=== PATIENT | female | born 1945 | race Caucasian/White ===

== ENCOUNTER → 2021-03-09 | Outpatient (CLI) | payer MEDICARE, OTHER ==
[2021-03-09 15:24] LABS: Basophils % (A) 1 %; Eosinophils # (A) 0.3 k/uL (0-0.7); Eosinophils % (A) 6 %; HCT 38.6 % (34.0-46.0); HGB 13.1 gm/dL (11.4-16.0); Lymphocytes # (A) 1.6 k/uL (1.0-4.8); Lymphocytes % (A) 29 %; MCH 33.2 pg (25.0-35.0); MCHC 33.8 g/dL (31.0-37.0); MCV 98.2 fL (80.0-100.0); Mean Platelet Volume 9.6; Monocytes # (A) 0.4 k/uL (0-1.0); Monocytes % (A) 7 %; Neutrophils # (A) 3.1 k/uL (1.3-7.7); Neutrophils % (A) 56 %; Platelet Count 179 k/uL (150-450); RBC 3.93 m/uL (3.80-5.40); RDW 14.2 % (11.5-15.5); WBC 5.6 k/uL (3.8-10.6)
[2021-03-09 15:28] LABS: Prothrombin Time 10.4 sec (9.0-12.0)
[2021-03-09 15:33] LABS: Potassium 4.3 mmol/L (3.5-5.1)
== END | disposition home or self-care (01) ==
LOC: LABPAT 14:21
PROVIDERS: ATTEND Orthopaedic Surgery
DX: Z01.812 Encounter for preprocedural laboratory examination (principal); Z79.01 Long term (current) use of anticoagulants; Z22.322 Carrier or suspected carrier of Methicillin resistant Staphylococcus aureus
CPT/HCPCS: 36415; 80051; 85025; 85610; 87070

== ENCOUNTER 2021-03-23 08:25 | Observation (INO) | payer MEDICARE, OTHER ==
[2021-03-19 11:01] VITALS: BMI 36.6
--- NOTE | 2021-03-22 11:56 | HP ---
HISTORY AND PHYSICAL DATE OF SURGERY: 03/23/2021 Irene Rea is a 76-year-old patient seen with symptomatic right knee osteoarthritis. We discussed options for treatment. She elected to proceed with right total knee arthroplasty. Consent was obtained. Medical clearance by Isabel James NP. PAST MEDICAL HISTORY: Hypertension, hyperlipidemia, hypothyroidism. PAST SURGICAL HISTORY: Hip arthroplasty, adenoidectomy. DAILY MEDICATIONS: Atorvastatin, lisinopril, [facility] Thyroid, Ventolin inhaler. ALLERGIES: NONE. SOCIAL HISTORY: She denies tobacco use. PHYSICAL EVALUATION OF THE RIGHT KNEE: Range of motion is zero to 120. Tenderness along the medial and lateral joint lines. Crepitus along the medial and lateral patellofemoral compartments with range of motion. Pain with patellofemoral compression. Ligaments stable. Hip rotation without pain. Distal neurovascular exam intact. RADIOGRAPHS: Right knee radiographs revealed moderate medial and lateral compartment osteoarthritis and severe patellofemoral compartment osteoarthritis. IMPRESSION: 1. Right knee osteoarthritis. 2. Hypertension. 3. Hypothyroidism. 4. Asthma. PLAN: Right total knee arthroplasty. MMODL / IJN: [id number] /
[~2021-03-23 08:25] MED LIST: ACETAMINOPHEN TAB 500 MG TAB PO PRN; DEXAMETHASONE SOD PHOSPHATE 4 MG/ML 1 ML VIAL IV ONE; LIDOCAINE 1% (10MG/ML) FOR IV START INTRADERMA PRN; MELOXICAM 7.5 MG TAB PO PRN; MIDAZOLAM 2 MG/2 ML VIAL IV PRN; ONDANSETRON 4 MG/2 ML VIAL IVP ONE; TRANEXAMIC ACID 1,000 MG in SODIUM CHLORIDE 0.9% 100 ML IVPB PRN
[2021-03-23] MEDS: LACTATED RINGERS 1,000 ML IV SCH (09:28)
[2021-03-23] MEDS ORDERED: SODIUM CHLORIDE 0.9% 100 ML BAG ONE (10:39)
[2021-03-23] MEDS ORDERED: MIDAZOLAM 2 MG/2 ML VIAL ONE (10:39)
[2021-03-23] MEDS ORDERED: HYDROmorphone (PF) 1 MG/ML ONE (10:39)
[2021-03-23] MEDS ORDERED: PROPOFOL 10 MG/ML 20 ML VIAL IV ONE (10:39)
[2021-03-23] MEDS ORDERED: DEXAMETHASONE SOD PHOSPHATE 4 MG/ML 1 ML VIAL ONE (10:39)
[2021-03-23] MEDS ORDERED: TRANEXAMIC ACID 1,000 MG/10 ML VIAL ONE (10:39)
[2021-03-23] MEDS ORDERED: ROPIVACAINE 5 MG/ML 30 ML VIAL ONE (10:39)
[2021-03-23] MEDS ORDERED: fentaNYL (PF) 50 MCG/ML 2 ML AMP ONE (10:39)
[2021-03-23] MEDS ORDERED: KETAMINE 10 MG/ML 20 ML VIAL ONE (10:39)
[2021-03-23] MEDS ORDERED: ceFAZolin 1,000 MG in SODIUM CHLORIDE 0.9% 1,000 ML IRRIGATION ONE (11:19)
[2021-03-23] MEDS ORDERED: HYDROcodone/APAP 5-325MG 1 EACH TAB PO PRN (12:15)
[2021-03-23] MEDS ORDERED: HYDROmorphone 0.5 MG/0.5 ML SYRINGE IVP PRN (12:15)
[2021-03-23] MEDS ORDERED: NALOXONE 0.4 MG/ML 1 ML VIAL IV PRN (12:15)
[2021-03-23] MEDS ORDERED: ONDANSETRON 4 MG/2 ML VIAL IVP PRN (12:15)
[2021-03-23] MEDS ORDERED: HYDROmorphone 0.2 MG/1 ML SYRINGE IVP PRN (12:15)
--- NOTE | 2021-03-23 12:15 | P.OP ---
Date of Procedure: 03/23/21 Preoperative Diagnosis: Right knee osteoarthritis Postoperative Diagnosis: Right knee osteoarthritis Procedure(s) Performed: Right total knee arthroplasty Implants: 1. Depuy attune size 5 narrow right cruciate retaining cemented femur 2. Depuy attune size 4 fixed bearing cemented tibial baseplate 3. Depuy attune size 5 fixed bearing cruciate retaining 12 mm polyethylene tibial insert 4. Depuy attune 35 mm all polyethylene cemented patella Anesthesia: GETA, regional (Adductor canal catheter, Ipack block), spinal Surgeon: Walt James Lard Bleacher #1: Joseph Pollard Estimated Blood Loss (ml): 45 Pathology: other (Bone) Condition: stable Disposition: PACU Indications for Procedure: 76-year-old patient seen with symptomatic right knee osteoarthritis. After treatment options were discussed, she elected to proceed with total knee arthroplasty. Operative Findings: see description of procedure Description of Procedure: Patient was taken to the operative suite after having an adductor canal catheter placed by the department of anesthesia as well as and Ipack block for postoperative pain management. Patient underwent a spinal anesthetic by the department of anesthesia. Patient was given preoperative IV intake antibiotics and TXA. A well-padded tourniquet was placed about the right lower extremity. The lower extremity was then prepped and draped in the normal sterile orthopedic fashion. The extremity was elevated, a tourniquet was insufflated to 300. A standard anterior incision was made sharply through skin. The patient seemed to be feeling the incision. She then was converted to a general anesthetic by the department of anesthesia. The surgery resumed. Dissection was taken down through the subcutaneous soft tissues down to the extensor mechanism. A medial arthrotomy was performed, patella was everted and knee was flexed. There was advanced osteoarthritis noted. I introduced my distal intramedullary femoral drill. I then introduced the distal femoral cutting jig. Jimenez BABB secured the cutting jig with 2 pins. I held retractors in position while Jimenez BABB performed the distal femoral resection through the guide area we now removed her distal femoral cutting guide. We now placed our 4-in-1 femoral cutting block and positioned and it was secured with 2 pins by Jimenez BABB while I held the block in position. The distal femoral finishing was now completed. A proximal tibial cutting guide was positioned. I held the guide in the appropriate position with both hands well Jimenez BABB inserted stabilizing pins into the guide. Proximal tibial cut was made. We now placed a trial femoral component into position, along with an appropriate size tibial tray and insert. We now took the knee through range of motion and had full extension good flexion and good overall soft tissue balance noted. The patella was everted and stabilized with 2 towel clips held by Jimenez BABB while I performed a flush with patellar quad tendon utilizing a fresh sawblade. We templated the patella, appropriate drill holes were made. An appropriate trial patella was positioned, knee was taken through full range of motion with the patella tracking very nicely. The trial patella was removed. Drill holes were made through the femoral component. All trial components were removed after marking off the appropriate rotation of the tibia. Retractors were now positioned along the proximal tibia. An appropriate keel punch was made with the appropriate size tibial guide by myself on Jimenez BABB assisted by holding retractors. At this point appropriate size implants were chosen and opened. The joint was irrigated copiously with pulse lavage mechanical irrigation. The posterior capsule was infiltrated with local analgesic. The wound was irrigated with pulse lavage mechanical irrigation. We mixed antibiotic methylmethacrylate. We placed the knee into flexion. We placed multiple retractors assisted by Jimenez BABB to expose the proximal tibia. Once the methyl methacrylate was ready, the tibial component was cemented into place removing any excess methylmethacrylate form by both myself and Jimenez BABB. The femoral component was cemented into place removing the removing any excess methylmethacrylate performed by both myself and Jimenez BABB. We then inserted the appropriate size polyethylene tibial insert. We made sure that it was locked into position. We took the knee into full extension, and then back in a flexion making sure we had removed any excess methylmethacrylate. The pat ellar component was then cemented down and secured with clamp. Excess methylmethacrylate removed. We kept the knee in full extension, patellar clamp in position until methylmethacrylate had hardened. Once it had hardened the patellar clamp was removed. The knee was taken through full range of motion. The patella tracked nicely. There was good soft tissue balancing. The tourniquet was now released. Additional hemostasis was achieved via electrocautery. A second gram of TXA was given. The wound again was irrigated with pulse lavage mechanical irrigation. The superficial soft tissues were infiltrated local analgesic. The extensor mechanism was repaired with Ethibond. We checked the repair with range of motion and it was stable. The subcutaneous soft tissues were repaired with Vicryl in layers. The skin was approximated with pernio/Dermabond. Sterile dressings were applied followed by loose web roll and Gonzalo bandage. The patient was transferred to a bed, and taken to recove ry in stable and satisfactory condition. Jimenez BABB assisted with this complex procedure.
[2021-03-23] MEDS: HYDROmorphone 0.5 MG/0.5 ML SYRINGE IVP PRN ×2 (12:37→12:46)
[2021-03-23] MEDS ORDERED: ROPIVACAINE 0.2%-NS ON-Q PUMP 1,090 MG, EMPTY PAIN BALL 1 EACH MISCELLANE PRN (12:38)
[2021-03-23] MEDS: fentaNYL (PF) 50 MCG/ML 2 ML AMP IVP ONE ×3 (12:53→13:04)
[2021-03-23] MEDS ORDERED: diphenhydrAMINE 50 MG/ML 1 ML VIAL ONE (13:08)
--- NOTE | 2021-03-23 13:16 | XR ---
EXAMINATION TYPE: XR knee limited RT DATE OF EXAM: 03/23/2021 CLINICAL HISTORY: Postoperative evaluation Two views of the right knee are submitted. Identified are changes of total knee arthroplasty with femoral and tibial components appearing well seated. Postsurgical soft tissue changes are noted. Alignment is anatomic.
--- NOTE | 2021-03-23 14:33 | P.ANPRN ---
Procedure Note - Anesthesia - Nerve Block Performed Right Adductor Canal Infusion Time Out Performed: Yes Date of Procedure: 03/23/21 Procedure Start Time: 09:52 Procedure Stop Time: 10:04 Location of Patient: PreOp Indication: Acute Post-Operative Pain, Requested by Surgeon Sedation Type: Sedate with meaningful contact maintained Preparation: Sterile Prep, Sterile Dressing Position: Supine Catheter: Indwelling Needle Types: Pajunk Needle Gauge: 21 Ultrasound used to visualize needle placement: Yes Ultrasound used to observe medication spread: Yes Blood Aspirated: No Pain Paresthesia on Injection Noted: No Resistance on Injection: Normal Image Stored and Saved: Yes Events: Uneventful and Well Tolerated (ropi .5% 20cc)
--- NOTE | 2021-03-23 14:34 | P.ANPRN ---
Procedure Note - Anesthesia - Nerve Block Performed Right Tyrack Single Time Out Performed: Yes Date of Procedure: 03/23/21 Procedure Start Time: 10:05 Procedure Stop Time: 10:10 Location of Patient: PreOp Indication: Acute Post-Operative Pain, Requested by Surgeon Sedation Type: Sedate with meaningful contact maintained Preparation: Sterile Prep Position: Supine Needle Types: [place] Needle Gauge: 21 Ultrasound used to visualize needle placement: Yes Ultrasound used to observe medication spread: Yes Blood Aspirated: No Pain Paresthesia on Injection Noted: No Resistance on Injection: Normal Image Stored and Saved: Yes Events: Uneventful and Well Tolerated (ropi .5% 25cc plus dexamethasone 4mg)
[2021-03-23] MEDS ORDERED: HYDROCORTISONE 1% CREAM 30 GM TUBE TOPICAL PRN (17:21)
--- NOTE | 2021-03-23 17:26 | P.CONS ---
History of Present Illness - Reason for Consult Consult date: 03/23/21 HTN Requesting physician: Walt James - Chief Complaint knee pain - History of Present Illness Patient is a 76-year-old female with a history of hypertension, dyslipidemia, and asthma who presented for elective right total knee arthroplast Patient seen and examined at bedside. She complains of wrist irritation and itching. Pain is well managed in her knee currently. She denies any lightheadedness, dizziness, chest pain, shortness breath, nausea or vomiting. She denies any recent illnesses. She tried conservative management of her knee pain and was requiring a cane prior to admission. Pertinent positives and negatives as discussed in HPI, a complete review of systems was performed and all other systems are negative. General: non toxic, no distress, appears at stated age Derm: Dermatitis with excoriation bilateral wrists, warm, dry, dressing in place over right knee Head: atraumatic, normocephalic, symmetric Eyes: EOMI, no lid lag, anicteric sclera, pupils equal round reactive to light ENT: Nose and ears atraumatic, no thrush, no pharyngeal erythema Neck: No thyromegaly, no cervical lymphadenopathy, trachea midline, supple Mouth: no lip lesion, mucus membranes moist Cardiovascular: S1S2 reg, no murmur, positive posterior tibial pulse bilateral, no edema, capillary refill less than 2 seconds Lungs: clear to ascultation bilateral, no ronchi, no rales, no wheeze, no accessory muscle use Abdominal: soft, nontender to palpation, no guarding, no appreciable organomegaly, normal bowel sounds Ext: no gross muscle atrophy, muscle strength muscle strength 5 out of 5 in all 4 extremities, no contractures Neuro: CN II-XI grossly intact, light touch intact all 4 extremities, finger to nose within normal limits, Psych: Alert, oriented, appropriate affect Patient is a 76-year-old female status post right total knee arthroplasty - Plans are for home with home health, patient will need a walker prescription. Hypertension - elevated due to surgery - follow BP - resume lisinopril Contact dermatitis bilateral wrist - take off patient bands and attach to bed - hydocortisone cream Dyslipidemia - no on statin - has planne outpatient follow-up Asthma - prn bronchodilators Chronic: Fibromyalgia Osteoarthritis Varicose veins Eczema Past Medical History Past Medical History: Asthma, Fibromyalgia, Hyperlipidemia, Hypertension, Osteoarthritis (OA), Pneumonia, Skin Disorder Additional Past Medical History / Comment(s): varicose veins, hiatal hernia, constipation, eczema, History of Any Multi-Drug Resistant Organisms: None Reported Past Surgical History: Adenoidectomy, Joint Replacement, Tonsillectomy, Tubal Ligation Additional Past Surgical History / Comment(s): rt hip replacement, [place] cataracts, laser surgery for glaucoma Past Anesthesia/Blood Transfusion Reactions: Motion Sickness, Postoperative Nausea & Vomiting (PONV) Past Psychological History: No Psychological Hx Reported Smoking Status: Former smoker Past Alcohol Use History: Occasional Additional Past Alcohol Use History / Comment(s): quit smoking age 26, smoked for 5 yrs Past Drug Use History: None Reported - Past Family History Sister(s) Family Medical History: Cancer Medications and Allergies Home Medications Medication Instructions Recorded Confirmed Type Ergocalciferol [Vitamin D2 (1250 1,250 mcg PO FR 03/19/21 03/23/21 History Mcg = 79784 Iu)] Multivitamins, Thera [Multivitamin 1 tab PO DAILY 03/19/21 03/19/21 History (formulary)] Thyroid,Pork [[place] Thyroid] 60 mg PO DAILY 03/19/21 03/19/21 History lisinopriL 10 mg PO QAM 03/19/21 03/19/21 History Allergies Allergy/AdvReac Type Severity Reaction Status Date / Time adhesive tape Allergy Rash/Hives Verified 03/23/21 08:54 ezetimibe Allergy Rash/Hives Verified 03/23/21 08:54 latex Allergy Unknown Verified 03/23/21 08:54 Physical Exam Osteopathic Statement: *. No significant issues noted on an osteopathic structural exam other than those noted in the History and Physical/Consult. Vitals: Vital Signs Temp Pulse Pulse Resp BP BP Pulse Ox 03/23/21 16:18 97.4 F L 70 18 164/69 94 L 03/23/21 15:00 59 L 16 184/74 98 03/23/21 14:30 59 L 16 155/73 99 03/23/21 14:15 60 16 169/71 99 03/23/21 14:00 60 16 155/64 98 03/23/21 13:45 62 16 153/72 97 03/23/21 13:30 59 L 16 161/72 96 03/23/21 13:15 61 16 155/70 94 L 03/23/21 13:00 62 16 162/74 94 L 03/23/21 12:45 61 16 173/74 97 03/23/21 12:33 97.5 F L 62 12 145/67 96 03/23/21 10:13 67 16 137/62 100 03/23/21 09:12 98.1 F 60 18 126/60 98 Intake and Output 03/23/21 03/23/21 03/23/21 06:59 14:59 22:59 Intake Total 1051 100 Output Total 45 Balance 1006 100 Intake: IV 1051 100 Output: Estimated Blood Loss 45 Other: Weight 96.4 kg 96.4 kg
[2021-03-23] MEDS: SODIUM CHLORIDE 0.9% 1,000 ML IV SCH (17:33)
[2021-03-23] MEDS: HYDROcodone/APAP 7.5-325MG 1 EACH TAB PO PRN (18:54)
[2021-03-23] MEDS: SENNOSIDES-DOCUSATE SODIUM 1 EACH TAB PO SCH (20:13)
[2021-03-24] MEDS: ENOXAPARIN 30 MG/0.3 ML SYRINGE SQ SCH ×2 (00:52→12:08)
[2021-03-24] MEDS: HYDROcodone/APAP 7.5-325MG 1 EACH TAB PO PRN ×3 (01:15→20:46)
[2021-03-24 05:04] LABS: Basophils % (A) 0 %; Eosinophils % (A) 0 %; HCT 34.4 % (34.0-46.0); HGB 11.4 gm/dL (11.4-16.0); Lymphocytes # (A) 0.9 k/uL (1.0-4.8); Lymphocytes % (A) 11 %; MCH 33.4 pg (25.0-35.0); MCHC 33.1 g/dL (31.0-37.0); MCV 100.9 fL (80.0-100.0); Macrocytosis Slight; Mean Platelet Volume 9.1; Monocytes # (A) 0.5 k/uL (0-1.0); Monocytes % (A) 6 %; Neutrophils % (A) 83 %; Platelet Count 162 k/uL (150-450); RBC 3.41 m/uL (3.80-5.40); RDW 13.8 % (11.5-15.5); WBC 8.5 k/uL (3.8-10.6)
--- NOTE | 2021-03-24 07:26 | P.PN ---
Progress Note - Text Progress Note Date: 03/24/21 Postoperative day # 1 status post total knee arthroplasty, and adductor canal catheter placed for postoperative analgesia, currently at ropivacaine 0.2% 8 mL per hour and continuous infusion, visual analogue scale is 4/10, patient using oral pain medication for breakthrough pain. And IV Dilaudid Assessment and plan= Acute postoperative pain, adductor canal catheter for pain control, pain is well controlled we'll continue the same management.
[2021-03-24] MEDS: lisinopriL 10 MG TAB PO SCH (09:00)
[2021-03-24] MEDS: THYROID, PORK 30 MG TAB PO SCH (09:00)
[2021-03-24] MEDS: HYDROmorphone 0.5 MG/0.5 ML SYRINGE IVP PRN ×2 (09:01→12:08)
--- NOTE | 2021-03-24 09:31 | P.PN ---
Subjective Progress Note Date: 03/24/21 Feels okay still has right knee pain. No chest pain no abdominal pain no nausea no vomiting no dizziness. Objective - Vital Signs Vital signs: Vital Signs Temp 97.8 F 03/24/21 03:42 Pulse 67 03/24/21 03:42 Resp 18 03/24/21 03:42 BP 135/69 03/24/21 03:42 Pulse Ox 95 03/24/21 03:42 Intake & Output 03/23/21 03/24/21 03/24/21 18:59 06:59 18:59 Intake Total 1151 Output Total 195 Balance 956 Weight 96.4 kg Intake: IV 1151 Output: Urine 150 Estimated Blood Loss 45 Other: Voiding Method Toilet Toilet # Voids 2 - Exam General: non toxic, no distress, appears at stated age Derm: Dermatitis with excoriation bilateral wrists, warm, dry, dressing in place over right knee Head: atraumatic, normocephalic, symmetric Eyes: EOMI, no lid lag, anicteric sclera ENT: Nose and ears atraumatic Neck: No thyromegaly Mouth: no lip lesion, mucus membranes moist Cardiovascular: S1S2 reg, no murmur, positive posterior tibial pulse bilateral, no edema, capillary refill less than 2 seconds Lungs: clear to ascultation bilateral, no ronchi, no rales, no wheeze, no accessory muscle use Abdominal: soft, nontender to palpation, no guarding, no appreciable organomegaly, normal bowel sounds Ext: no gross muscle atrophy, muscle strength muscle strength 5 out of 5 in all 4 extremities, no contractures Neuro: CN II-XI grossly intact, light touch intact all 4 extremities, finger to nose within normal limits, Psych: Alert, oriented, appropriate affect - Labs CBC & Chem 7: 03/24/21 04:44 Labs: Abnormal Lab Results - Last 24 Hours (Table) 03/24/21 Range/Units 04:44 RBC 3.41 L (3.80-5.40) m/uL MCV 100.9 H (80.0-100.0) fL Lymphocytes # 0.9 L (1.0-4.8) k/uL Assessment and Plan Assessment: Patient is a 76-year-old female status post right total knee arthroplasty - Plans are for home with home health, patient will need a walker prescription. Hypertension -Continue lisinopril Contact dermatitis bilateral wrist - hydocortisone cream Dyslipidemia - not on statin outpatient follow-up Asthma - prn bronchodilators Chronic: Fibromyalgia Osteoarthritis Varicose veins Eczema Disposition: Pending clinical progression. Medically okay for discharge
--- NOTE | 2021-03-24 12:57 | P.PN ---
Subjective Progress Note Date: 03/24/21 Principal diagnosis: Right knee osteoarthritis Patient was seen at bedside this morning lying semirecumbent bed. Patient states she has been significant amount of pain since surgery yesterday. She says most the pain is located at the back of her knee and then her calf. Patient rates this pain as 10/10. She says she try to get up with physical therapy today, but she was in too much pain to walk around. Patient states she recently in the past hour was given a dose of Dilaudid to help control with her pain. She says the pain eased a bit after dilaudid given. Patient says she has not had bowel movement since surgery, however, patient has been passing gas. She says she has been using incentive spirometer. Patient says she has 10 steps to get up into her house and lives alone. Patient has not felt comfortable about going home. Patient denies chest pain, fever, shortness of breath, nausea, vomiting, change in vision, loss of bowel/bladder control Objective - Vital Signs Vital signs: Vital Signs Temp 98.1 F 03/24/21 08:00 Pulse 71 03/24/21 09:04 Resp 18 03/24/21 09:04 BP 167/67 03/24/21 08:00 Pulse Ox 97 03/24/21 08:00 Intake & Output 03/23/21 03/24/21 03/24/21 18:59 06:59 18:59 Intake Total 1151 Output Total 195 Balance 956 Weight 96.4 kg Intake: IV 1151 Output: Urine 150 Estimated Blood Loss 45 Other: Voiding Method Toilet Toilet Toilet # Voids 2 - Exam Right knee: Incision is clean, dry, and intact. The emily are in good condition. There is minimal soft tissue swelling and ecchymosis surrounding the medial and lateral aspects of the incision. moderate tenderness to palpation of the calf. The calf is not warm to touch. There is no erythema. Plantar flexion, dorsiflexion, EHL, FHL are intact. Sensory exam to light touch throughout the extremity is intact, dorsal pedis pulses 2+. - Labs CBC & Chem 7: 03/24/21 04:44 Labs: Abnormal Lab Results - Last 24 Hours (Table) 03/24/21 Range/Units 04:44 RBC 3.41 L (3.80-5.40) m/uL MCV 100.9 H (80.0-100.0) fL Lymphocytes # 0.9 L (1.0-4.8) k/uL Assessment and Plan Assessment: Right knee osteoarthritis Postoperative day #1 status post right total knee arthroplasty Plan: 1. Right knee osteoarthritis - right total knee arthroplasty performed yesterday, 03/23/2021. Patient seen at bedside this morning in moderate amount of pain. Plan to add tramadol 50 mg 3 times a day between doses of [place] to help control pain. Plan to discharge to rehab tomorrow 2. Appreciate medical management 3. Pain management - continue Spring. Will add tramadol 50 mg to take between Spring doses. Dilaudid only if needed 4. DVT prophylaxis - Lovenox 5. GI prophylaxis - senna 6. Encourage incentive spirometer use 7. PT/OT - weightbearing as side with walker for assistance 8. Discharge planning - planning discharge to rehab tomorrow vs Time with Patient: Less than 30
[2021-03-24] MEDS: LACTATED RINGERS 1,000 ML IV SCH (14:41)
[2021-03-24] MEDS: traMADol 50 MG TAB PO SCH ×2 (15:57→22:07)
[2021-03-24] MEDS: SENNOSIDES-DOCUSATE SODIUM 1 EACH TAB PO SCH (20:47)
[2021-03-25] MEDS: SODIUM CHLORIDE 0.9% 1,000 ML IV SCH ×2 (00:21→06:10)
[2021-03-25] MEDS: ENOXAPARIN 30 MG/0.3 ML SYRINGE SQ SCH ×2 (00:30→11:41)
[2021-03-25] MEDS: HYDROcodone/APAP 7.5-325MG 1 EACH TAB PO PRN ×2 (02:01→08:49)
[2021-03-25 07:34] VITALS: BP 158/72; PULSE 74; RESP 18; TEMP 97.3
[2021-03-25] MEDS: LACTATED RINGERS 1,000 ML IV SCH (07:35)
[2021-03-25] MEDS: THYROID, PORK 30 MG TAB PO SCH (07:41)
[2021-03-25] MEDS: lisinopriL 10 MG TAB PO SCH (07:41)
[2021-03-25] MEDS: traMADol 50 MG TAB PO SCH (07:41)
--- NOTE | 2021-03-25 09:18 | P.PN ---
Subjective Progress Note Date: 03/25/21 Principal diagnosis: Status post right total knee arthroplasty Patient evaluated at bedside, she is resting in her hospital bed. She does note discomfort in the right knee. She states that the medication is helping at this time. She has worked with physical therapy, she is very concerned with going home due to the amount of stair she has at her apartment. We have been in d iscussion with case management/child protective services social worker regarding rehab placement. Currently denies any headaches, lightheadedness, chest pain or shortness of breath. Objective - Vital Signs Vital signs: Vital Signs Temp 97.3 F L 03/25/21 07:34 Pulse 74 03/25/21 07:34 Resp 18 03/25/21 07:34 BP 158/72 03/25/21 07:34 Pulse Ox 95 03/25/21 07:34 Intake & Output 03/24/21 03/25/21 03/25/21 18:59 06:59 18:59 Intake Total 1000 Balance 1000 Intake: Oral 1000 Other: Voiding Method Toilet # Voids 2 2 - Exam Right lower extremity: Incision is clean, dry, and intact. The emily are in good condition. There is minimal soft tissue swelling and ecchymosis surrounding the medial and lateral aspects of the incision. Calf is soft, no tenderness with palpation. Plantar flexion, dorsiflexion, EHL, FHL are intact. Sensory exam to light touch throughout the extremity is intact, dorsal pedis pulses 2+. - Labs CBC & Chem 7: 03/24/21 04:44 Assessment and Plan Assessment: Postoperative day #2 status post right total knee arthroplasty Plan: Pain control, will continue use of [place] 7.5 mg/325 mg and Tramadol 50 mg for discharge DVT prophylaxis, continue Lovenox 30 mg subcu daily, plan for transition aspirin 81 mg twice a day and discharged home Wound care instructions were discussed with patient, this including icing and elevating along the showering techniques Medical recommendations Encourage incentive spirometer Discharge planning: planning for discharge to rehab today Time with Patient: Less than 30
--- NOTE | 2021-03-25 10:12 | P.PN ---
Subjective Progress Note Date: 03/25/21 Feels overall better today. Still complains of right knee pain. No chest pain, no nausea or vomiting. Objective - Vital Signs Vital signs: Vital Signs Temp 97.3 F L 03/25/21 07:34 Pulse 74 03/25/21 07:34 Resp 18 03/25/21 08:00 BP 158/72 03/25/21 07:34 Pulse Ox 95 03/25/21 07:34 Intake & Output 03/24/21 03/25/21 03/25/21 18:59 06:59 18:59 Intake Total 1000 Balance 1000 Intake: Oral 1000 Other: Voiding Method Toilet Toilet # Voids 2 2 - Exam General: non toxic, no distress, appears at stated age Derm: Dermatitis with excoriation bilateral wrists, warm, dry, dressing in place over right knee Head: atraumatic, normocephalic, symmetric Eyes: EOMI, no lid lag, anicteric sclera ENT: Nose and ears atraumatic Neck: No thyromegaly Mouth: no lip lesion, mucus membranes moist Cardiovascular: S1S2 reg, no murmur, positive posterior tibial pulse bilateral, no edema, capillary refill less than 2 seconds Lungs: clear to ascultation bilateral, no ronchi, no rales, no wheeze, no accessory muscle use Abdominal: soft, nontender to palpation, no guarding, no appreciable organomegaly, normal bowel sounds Ext: no gross muscle atrophy, muscle strength muscle strength 5 out of 5 in all 4 extremities, no contractures Neuro: CN II-XI grossly intact, light touch intact all 4 extremities Psych: Alert, oriented, appropriate affect - Labs CBC & Chem 7: 03/24/21 04:44 Assessment and Plan Assessment: Patient is a 76-year-old female status post right total knee arthroplasty - Possibly needing rehab. Hypertension -Continue lisinopril Contact dermatitis bilateral wrist - hydocortisone cream Dyslipidemia - not on statin outpatient follow-up Asthma - prn bronchodilators Chronic: Fibromyalgia Osteoarthritis Varicose veins Eczema Disposition: Pending clinical progression. Medically okay for discharge, likely needs rehab.
--- NOTE | 2021-03-25 12:02 | P.DS ---
Providers Date of admission: 03/24/21 15:13 Expected date of discharge: 03/25/21 Attending physician: Walt James Consults: 03/23/21 12:15 Consult Physician Routine Consulting Provider: Sloane Mg Consult Reason/Comments: Medical management Do you want consulting provider notified?: Yes Primary care physician: Isabel [facility] Course: Date of admission: 03/23/2021 Date of discharge: 03/25/2021 Admission diagnosis: Status post right total knee arthroplasty Discharge diagnosis: Same Attending physician: Dr. James Surgery: Right total knee arthroplasty Brief history: Patient is a 76-year-old female with a history of progressive primary right knee osteoarthritis. At this point patient has failed conservative treatment measures and has opted to proceed with a elective right total knee arthroplasty. Hospital course: Details of patient's surgery can be found in operative report. Patient tolerated the procedure well and was subsequently transported to orthopedic floor. Patient's orthopeidc and medical care was provided daily. Patient had daily laboratory tests performed for evaluation of overall blood counts. Patient had daily physical therapy to include strengthening range of motion as well as education with walker ambulation. Patient was treated with Lovenox for their postoperative DVT prophylaxis during their inpatient stay. Patient was noted to have a relatively uneventful postoperative course. Patient reported satisfactory pain control with oral pain medications by postoperative day 0. Patient showed satisfactory progress with physical therapy. Patient moved steadily through the program and had no difficulty meeting the goals by postoperative day 2. Given patient's otherwise satisfactory course and having met physical therapy goals, plan is to discharge patient rehab on postoperative day 2. Discharge condition/disposition: Patient will be discharged to rehab in stable condition. Discharge medications: Instructions are given on resumption of patient's normal daily medications per primary care recommendation, in addition patient will be prescribed [place] 7.5 mg/325 mg, tramadol 50 mg, Heparin 5000 units, Colace 100 mg. Discharge instructions: 1. Wound care and infection precautions, keep incision dry and covered while showering, no lotions, creams, moisturizers. No soaking, tubs, pools, hottubs. Do not scrub over the incision. 2. Weight-bear as tolerated with walker / cane until follow-up. 3. Ice and elevate when necessary. Do not exceed 20 minutes per hour with ice pack. 4. Utilize compression sleeve until seen at first follow up appointment. 5. Visiting nursing care. 6. Home physical therapy. 7. Pain meds and anticoagulants per prescription. 8. Pain medication has potential to cause constipation. Increase oral fluid and fiber intake. Contact primary care provider if you have not had a bowel movement within 48 hours after discharge 9. No anti-inflammatory medication until discussed at first post operative visit, this including Motrin, Aleve, Mobic, Diclofenac. 10. Follow up in office at 2 weeks postop with Jimenez Pollard PA-C/Meir Baca 11. Follow up with your primary care doctor 7-10 days after discharge. 12. Contact [facility] with any questions, . Procedures: Right total knee arthroplasty Patient Condition at Discharge: Good Plan - Discharge Summary Discharge Rx Participant: Yes New Discharge Prescriptions: New Docusate [Colace] 100 mg PO DAILY #30 cap HYDROcodone/APAP 7.5-325MG [[place] 7.5] 1 each PO Q6HR PRN #28 tab PRN Reason: Pain traMADol HCl [Ultram] 50 mg PO Q6H PRN #28 tab PRN Reason: Pain Heparin Sodium,Porcine [Heparin Sodium] 5,000 unit SQ Q12HR #30 each No Action Thyroid,Pork [[place] Thyroid] 60 mg PO DAILY Ergocalciferol [Vitamin D2 (1250 Mcg = 18481 Iu)] 1,250 mcg PO FR lisinopriL 10 mg PO QAM Multivitamins, Thera [Multivitamin (formulary)] 1 tab PO DAILY Discharge Medication List Ergocalciferol [Vitamin D2 (1250 Mcg = 32110 Iu)] 1,250 mcg PO FR 03/19/21 [History] Multivitamins, Thera [Multivitamin (formulary)] 1 tab PO DAILY 03/19/21 [History] Thyroid,Pork [[place] Thyroid] 60 mg PO DAILY 03/19/21 [History] lisinopriL 10 mg PO QAM 03/19/21 [History] Docusate [Colace] 100 mg PO DAILY #30 cap 03/25/21 [Rx] HYDROcodone/APAP 7.5-325MG [[place] 7.5] 1 each PO Q6HR PRN #28 tab 03/25/21 [Rx] Heparin Sodium,Porcine [Heparin Sodium] 5,000 unit SQ Q12HR #30 each 03/25/21 [Rx] traMADol HCl [Ultram] 50 mg PO Q6H PRN #28 tab 03/25/21 [Rx] Follow up Appointment(s)/Referral(s): Walt James DO [Doctor of Osteopathic Medicine] - [facility]10[facility] - As Needed [facility], [NON-STAFF] - 1-2 Days Activity/Diet/Wound Care/Special Instructions: Orthopedic Discharge Instructions: 1. Wound care and infection precautions, keep incision dry and covered while showering, no lotions, creams, moisturizers. No soaking, pools, hot tubs. Do not scrub over incision. 2. Weight-bear as tolerated with walker / cane until follow-up. 3. Ice and elevate when necessary. Do not exceed 20 minutes per hour with ice pack. 4. Utilize compression sleeve until seen at first follow up appointment. 5. Pain meds and anticoagulants per prescription. 6. Pain medication has potential to cause constipation. Increase oral fluid and fiber intake. Contact primary care provider if you have not had a bowel movement within 48 hours after discharge. 7. No anti-inflammatory medication until discussed at first post operative visit, this including Motrin, Aleve, Mobic, Diclofenac. 8. Follow up in office at 2 weeks postop with Jimenez Pollard PA-C/Meir Alcazar PA-C 9. Follow up with your primary care doctor 7-10 days after discharge. 10. Contact [facility] with any questions, . Wound care instructions: 1. Okay to remove emily on 04/06/2021 2. Keep incision covered and dry while showering until evaluated at first post Discharge Disposition: TRANSFER TO SNF/ECF
== END 2021-03-25 13:59 ==
LOC: OR 08:25 → 1SOBS 12:06 → OR 03-24 14:31 → 1SOBS 03-24 15:13
PROVIDERS: ADMIT Orthopaedic Surgery; ATTEND Orthopaedic Surgery
DX: M17.11 Unilateral primary osteoarthritis, right knee (principal); G89.18 Other acute postprocedural pain; I10 Essential (primary) hypertension; E78.5 Hyperlipidemia, unspecified; E03.9 Hypothyroidism, unspecified; J45.909 Unspecified asthma, uncomplicated; M79.7 Fibromyalgia; I83.90 Asymptomatic varicose veins of unspecified lower extremity; K44.9 Diaphragmatic hernia without obstruction or gangrene; L30.9 Dermatitis, unspecified; K59.00 Constipation, unspecified; R73.03 Prediabetes; Z20.822 Contact with and (suspected) exposure to COVID-19; Z87.01 Personal history of pneumonia (recurrent); Z87.891 Personal history of nicotine dependence; Z96.641 Presence of right artificial hip joint; Z79.899 Other long term (current) drug therapy; Z79.890 Hormone replacement therapy; Z98.890 Other specified postprocedural states; Z91.040 Latex allergy status; Z88.8 Allergy status to other drugs, medicaments and biological substances; Z91.048 Other nonmedicinal substance allergy status; Z80.9 Family history of malignant neoplasm, unspecified
CPT/HCPCS: 97116; 97161; 97530; 97166; 64999; 64448; 76942; 85025; 88300; 87635; 73560; 27447; G0378 ×2; C1776; C1713 ×2; J2250; J1200; J1100; J0690 ×3; J2405; J3010; J1650 ×2; J1170 ×3; J2795 ×2; J2704

== ENCOUNTER → 2022-02-26 | Outpatient (CLI) | payer MEDICARE, OTHER ==
[2022-02-26 22:54] LABS: Basophils # (A) 0.01 X 10*3/uL (0.00-0.10); Basophils % (A) 0.2 %; Eosinophils # (A) 0 X 10*3/uL (0.04-0.35); Eosinophils % (A) 0 %; HCT 42.3 % (37.2-46.3); HGB 13.9 g/dL (12.0-15.0); Immature Grans, Automated 0.6 %; Lymphocytes # (A) 0.86 X 10*3/uL (0.90-5.00); Lymphocytes % (A) 17.7 %; MCHC 32.9 g/dL (32.0-37.0); MCV 97.5 fL (80.0-97.0); Mean Platelet Volume 12.1 fL (9.5-12.2); Monocytes % (A) 2.1 %; NRBC Per 100 WBC 0 /100 WBCS (0.0-0.0); Neutrophils # (A) 3.85 X 10*3/uL (1.80-7.70); Neutrophils % (A) 79.4 %; Platelet Count 223 X 10*3/uL (140-440); RBC 4.34 X 10*6/uL (4.10-5.20); RDW 14.4 % (11.5-14.5); WBC 4.85 X 10*3/uL (4.50-10.00)
[2022-02-27 00:06] LABS: Thyroid Peroxidase Antibodies 14.8 U/mL (0.0-33.0)
[2022-02-27 00:13] LABS: C Reactive Protein <0.30 mg/dL (0.00-0.80)
== END | disposition home or self-care (01) ==
LOC: LABWHC1 15:49
PROVIDERS: ATTEND Allergy & Immunology
DX: E03.9 Hypothyroidism, unspecified (principal); L50.8 Other urticaria
CPT/HCPCS: 36415; 84439; 84443; 84481; 85025; 86140; 86376; 86800

== ENCOUNTER → 2022-03-05 | Outpatient (CLI) | payer MEDICARE, OTHER ==
--- NOTE | 2022-03-05 08:04 | P.GSHP ---
History of Present Illness H&P Date: 03/05/22 Chief Complaint: Abnormal mammogram Irene is a 77 year old white female seen in consultation for Isabel riley NP regarding a mammographic abnormality in the left breast. The [place] underwent [place] [id number]. This revealed amorphous calcifica tions in the left breast at middle depth 7 cm from the nipple. No lesions of concern were seen in the right breast. Additional views of the left breast were obtained on. Stereotactic core biopsy was recommended. The calcifications were in the lower outer quadrant of the breast. The mammogram was reviewed with Dr. Perez from radiology. The patient does not note any lumps masses or nodules of concern in either breast. She has had 2 biopsies of the right breast in the past both were done in the operating room and were benign. She has not had any recent trauma or infection of the breast. Caffeine: 1-2 cups of coffee/day nicotine: former smoker in chocolate: occasional BCP: stopped in her 30's Family History: sister: breast cancer after 10 years; dx. in 40's sister: breast cancer, dx. late 50's mother: esophogeal Hormonal History: menarche: 9 M4 age at first :18, breast fed: no meopause: 40 hormones: none Surgical history: Right knee replacement Right hip replacement Right breast biopsy 2 Tubal ligation Medical History: allergies HTN fibromyalgia high cholesterol hypothyroid Social HIstory: nicotine: former smoker stopped in alcohol: wine weekly drugs: none - Constitutional Constitutional: Denies chills, Denies fever - EENT Eyes: denies blurred vision, denies pain Ears: bilateral: decreased hearing, deny: tinnitus Ears, nose, mouth and throat: Denies headache, Denies sore throat - Breasts Breasts: bilateral: as per HPI - Cardiovascular Cardiovascular: Denies chest pain, Denies shortness of breath - Respiratory Comment: asthma - Gastrointestinal Gastrointestinal: Denies abdominal pain, Denies diarrhea, Denies nausea, Denies vomiting - Genitourinary (Female) Genitourinary: Denies dysuria, Denies hematuria - Menstruation Menstruation: Reports postmenopausal - Musculoskeletal Musculoskeletal: Reports myalgias - Integumentary Comment: 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 Integumentary: Reports pruritus, Reports rash - Neurological Neurological: Denies numbness, Denies weakness - Psychiatric Psychiatric: Denies anxiety, Denies depression - Endocrine Endocrine: Reports fatigue, Denies weight change - Hematologic/Lymphatic Comment: none - Allergic/Immunologic Allergic/Immunologic: Reports as per HPI Past Medical History Past Medical History: Asthma, Fibromyalgia, Hyperlipidemia, Hypertension, Osteoarthritis (OA), Pneumonia, Skin Disorder Additional Past Medical History / Comment(s): varicose veins, hiatal hernia, constipation, eczema History of Any Multi-Drug Resistant Organisms: None Reported Past Surgical History: Adenoidectomy, Joint Replacement, Tonsillectomy, Tubal Ligation Additional Past Surgical History / Comment(s): rt hip replacement, [place] cataracts, laser surgery for glaucoma. Right knee replacement Past Anesthesia/Blood Transfusion Reactions: Motion Sickness, Postoperative Nausea & Vomiting (PONV) Past Psychological History: No Psychological Hx Reported Smoking Status: Former smoker Past Alcohol Use History: Occasional Additional Past Alcohol Use History / Comment(s): quit smoking age 26, smoked for 5 yrs Past Drug Use History: None Reported - Past Family History Sister(s) Family Medical History: Cancer Medications and Allergies Home Medications Medication Instructions Recorded Confirmed Type Thyroid,Pork [[place] Thyroid] 60 mg PO DAILY 03/19/21 03/05/22 History Olmesartan Medoxomil 20 mg PO DAILY 02/18/22 03/05/22 History Rosuvastatin [Crestor] 10 mg PO DAILY 02/18/22 03/05/22 History Allergies Allergy/AdvReac Type Severity Reaction Status Date / Time adhesive tape Allergy Rash/Hives Verified 03/05/22 07:16 ezetimibe Allergy Rash/Hives Verified 03/05/22 07:16 latex Allergy Unknown Verified 03/05/22 07:16 Surgical - Exam - General no distress - Eyes normal ocular movement - Neck trachea midline - Respiratory normal respiratory effort, clear to auscultation - Cardiovascular Rhythm: regular Heart Sounds: normal: S1, S2 - Abdomen Abdomen: soft, non tender, no guarding, no rigid, no rebound - Integumentary rash over back and chest - Musculoskeletal uses a cane, arthritis - Psychiatric oriented to time, oriented to person, oriented to place, speech is normal, m kirill intact Breast Exam: BRA: 44D inspection: bilateral grade 3 ptosis; right breast slightly larger than left breast palpation: right breast: multi-positional exam fibrocystic changes no dominant masses or nodules of concern Right axilla: No adenopathy of concern Left breast: Multi-positional exam fibrocystic changes no dominant masses or nodules of concern Left axilla: No adenopathy of concern Results Mammogram reviewed with Dr. Perez Assessment and Plan Assessment: Impression: Radiographic abnormality left breast Fibrocystic breast changes Hypertension Hypothyroid High cholesterol Fibromyalgia Arthritis Rash as stated Plan: Stereotactic core biopsy left breast Risk and benefits of the procedure discussed with the patient. Risks include but are not limited to bleeding, infection, reaction to the anesthetic. If the lesion cannot be seen then stereotactic core biopsy would not be performed. If the lesion were discordant on core biopsy then a bone biopsy may be recommended. Alternatives such as watchful waiting open biopsy or discussed but not recommended. CC: Gabby Gipson NP
== END ==
LOC: WWCWWP 06:48
PROVIDERS: ATTEND Surgery
DX: N60.12 Diffuse cystic mastopathy of left breast (principal); I10 Essential (primary) hypertension; E03.9 Hypothyroidism, unspecified; E78.5 Hyperlipidemia, unspecified; M79.7 Fibromyalgia; M19.90 Unspecified osteoarthritis, unspecified site; R21 Rash and other nonspecific skin eruption; Z91.040 Latex allergy status; Z88.8 Allergy status to other drugs, medicaments and biological substances; Z91.09 Other allergy status, other than to drugs and biological substances

== ENCOUNTER → 2022-03-05 | Day surgery (SDC) | payer MEDICARE, OTHER ==
[2022-03-05 07:24] VITALS: RESP 16
[2022-03-05 08:59] VITALS: BP 139/73; PULSE 67; TEMP 98.1
--- NOTE | 2022-03-05 09:05 | P.OP ---
Date of Procedure: 03/05/22 Preoperative Diagnosis: Microcalcifications of concern left breast lower outer quadrant Postoperative Diagnosis: Same Procedure(s) Performed: Stereotactic core biopsy left breast Anesthesia: local Surgeon: Nohemy Meredith Pathology: other (Breast tissue showing microcalcifications of concern) Condition: stable Disposition: same day Indications for Procedure: Microcalcifications of concern left breast lower outer quadrant Operative Findings: Radiographic of specimen revealed microcalcifications of concern have been sampled Description of Procedure: The patient was seen and examined. Risk and benefits of stereotactic core biopsy were discussed. Alternatives such as watchful waiting resection in the operating room were discussed but not recommended. The patient wished to proceed with the procedure. The patient was brought to the stereotactic core biopsy room. She was positioned prone on the lo-rad table. A truck loader overhead crane film was obtained. The area of concern was identified. The lesion was targeted. The breast was prepped using Betadine. 20 mL of 1% lidocaine were used to anesthetize the area of concern. A 9-gauge vacuum-assisted core rotating biopsy needle was driven to the correct coordinates. A prefire film was obtained. The needle was noted to be in the correct location. The needle was fired. Post fire film was obtained. The needle was noted to be in the correct location. 12 core biopsy specimens were obtained. Radiograph of the specimens revealed the microcalcifications of concern had been sampled as well as some coarse microcalcifications. A secure mireya top hat clip was placed. Radiograph revealed this to be in the correct location. The specimen was sent to pathology. The patient will follow up with Dr. Bañuelos. The patient tolerated the procedure in stable condition.
--- NOTE | 2022-03-05 10:31 | MM ---
Date of Procedure: 03/05/22 Preoperative Diagnosis: Microcalcifications of concern left breast lower outer quadrant Postoperative Diagnosis: Same Procedure(s) Performed: Stereotactic core biopsy left breast Anesthesia: local Surgeon: Nohemy Meredith Pathology: other (Breast tissue showing microcalcifications of concern) Condition: stable Disposition: same day Indications for Procedure: Microcalcifications of concern left breast lower outer quadrant Operative Findings: Radiographic of specimen revealed microcalcifications of concern have been sampled Description of Procedure: The patient was seen and examined. Risk and benefits of stereotactic core biopsy were discussed. Alternatives such as watchful waiting resection in the operating room were discussed but not recommended. The patient wished to proceed with the procedure. The patient was brought to the stereotactic core biopsy room. She was positioned prone on the lo-rad table. A director of scout work film was obtained. The area of concern was identified. The lesion was targeted. The breast was prepped using Betadine. 20 mL of 1% lidocaine were used to anesthetize the area of concern. A 9-gauge vacuum-assisted core rotating biopsy needle was driven to the correct coordinates. A prefire film was obtained. The needle was noted to be in the correct location. The needle was fired. Post fire film was obtained. The needle was noted to be in the correct location. 12 core biopsy specimens were obtained. Radiograph of the specimens revealed the microcalcifications of concern had been sampled as well as some coarse microcalcifications. A secure mireya top hat clip was placed. Radiograph revealed this to be in the correct location. The specimen was sent to pathology. The patient will follow up with Dr. Bañuelos. The patient tolerated the procedure in stable condition. KASANDRA
== END ==
LOC: RADMAMWWP 06:49
PROVIDERS: ATTEND Surgery
DX: N62 Hypertrophy of breast (principal); R92.1 Mammographic calcification found on diagnostic imaging of breast; R92.8 Other abnormal and inconclusive findings on diagnostic imaging of breast; Z91.040 Latex allergy status; Z88.8 Allergy status to other drugs, medicaments and biological substances; Z91.09 Other allergy status, other than to drugs and biological substances
CPT/HCPCS: 88305; 19081; A4648; J2001

== ENCOUNTER → 2022-03-19 | Outpatient (CLI) | payer MEDICARE, OTHER ==
[2022-03-19 09:23] VITALS: BP 137/65; PULSE 77; RESP 18; TEMP 97.9
--- NOTE | 2022-03-19 09:47 | P.PN ---
Subjective Progress Note Date: 03/19/22 Irene is a 77 year old white female status post stero core biopsy of the left breast on 03-05-22. 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 It was felt to be benign concordant. The patient no complaints related to the procedure. Objective - Vital Signs Vital signs: Vital Signs Temp 97.9 F 03/19/22 09:20 Pulse 77 03/19/22 09:20 Resp 18 03/19/22 09:20 BP 137/65 03/19/22 09:20 Pulse Ox 97 03/19/22 09:20 FiO2 Intake & Output 03/18/22 03/19/22 03/19/22 18:59 06:59 18:59 Weight 97.069 kg - Constitutional General appearance: Present: cooperative - EENT ENT: Present: hearing grossly normal - Neck Neck: Present: normal ROM - Respiratory Respiratory: bilateral: CTA - Cardiovascular Heart sounds: normal: S1, S2 - Integumentary Integumentary Comment(s): Biopsy site clean and dry Evidence of any infection or hematoma Integumentary: Present: normal turgor - Musculoskeletal Musculoskeletal Comment(s): Uses a cane - Psychiatric Psychiatric: Present: A&O x's 3, appropriate affect, intact judgment & insight Assessment and Plan Assessment: Impression: Stereotactic core biopsy left breast [id number] benign concordant Plan: Repeat left breast mammogram in 6 months with physician exam at that time Cc: Dr. Roblero, Isabel James
== END ==
LOC: WWCWWP 09:14
PROVIDERS: ATTEND Surgery
DX: N62 Hypertrophy of breast (principal); Z91.048 Other nonmedicinal substance allergy status; Z91.040 Latex allergy status; Z88.8 Allergy status to other drugs, medicaments and biological substances